=== PATIENT | male | born 1960 | race Caucasian/White ===

== ENCOUNTER 2016-11-22 14:35 | Emergency (ER) | payer BC, OTHER ==
[2016-11-22 15:35] VITALS: BP 147/82
--- NOTE | 2016-11-22 16:08 | UC ---
Respiratory Complaint HPI - HPI Summary HPI Summary: 56 yo male with a one week hx of ear ache (R>L), sore throat, nasal congestion and cough low grade fever chills no CP or SOB cough rarely productive malaise and fatigue - History of Current Complaint Chief Complaint: UCGeneralIllness Stated Complaint: COUGH Time Seen by Provider: 11/22/16 15:52 Hx Obtained From: Patient Onset/Duration: Gradual Onset, Lasting Days - 5-6 Timing: Constant Severity Initially: Mild Severity Currently: Moderate Pain Intensity: 3 Pain Scale Used: 0-10 Numeric Character: Cough: Nonproductive Aggravating Factors: Nothing Alleviating Factors: Nothing Associated Signs And Symptoms: Positive: Fever - pablito, Chills, Nasal Congestion - Allergies/Home Medications Allergies/Adverse Reactions: Allergies Allergy/AdvReac Type Severity Reaction Status Date / Time IV CONTRAST Allergy Mild HIVES, RASH Uncoded 11/22/16 15:29 PMH/Surg Hx/FS Hx/Imm Hx Previously Healthy: Yes Endocrine History Of: Reports: Thyroid Disease - THYRIOD CA - Surgical History Surgical History: Yes Surgery Procedure, Year, and Place: hernia. THYROIDECTOMY. TONSILECTOMY - Family History Known Family History: Positive: Diabetes, Other - [place] - Social History Alcohol Use: Occasionally Substance Use Type: None Smoking Status (MU): Heavy Every Day Tobacco Smoker Type: Cigarettes Amount Used/How Often: 1 PPD Length of Time of Smoking/Using Tobacco: 20 YEARS Have You Smoked in the Last Year: Yes Cessation Counseling: Patient Advised to Stop Review of Systems Constitutional: Fever - pablito, Chills, Fatigue Skin: Negative Eyes: Negative ENT: Sore Throat, Ear Ache Respiratory: Cough Cardiovascular: Negative Gastrointestinal: Negative Genitourinary: Negative Motor: Negative Neurovascular: Negative Musculoskeletal: Negative Neurological: Negative Psychological: Negative All Other Systems Reviewed And Are Negative: Yes Physical Exam Triage Information Reviewed: Yes Appearance: Well-Appearing, No Pain Distress, Well-Nourished Vital Signs: Initial Vital Signs Temp 99.6 F 11/22/16 15:30 Pulse 92 11/22/16 15:30 Resp 16 11/22/16 15:30 BP 147/82 11/22/16 15:30 Pulse Ox 97 11/22/16 15:30 Vital Signs Reviewed: Yes Eyes: Positive: Conjunctiva Clear ENT: Positive: Hearing grossly normal, Pharynx normal, Nasal congestion, TM bulging. Negative: Trismus, Muffled/hoarse voice Dental: Negative: Dental Fracture @, Abscess @ Neck: Positive: Supple, Nontender, No Lymphadenopathy Respiratory: Positive: Lungs clear, Normal breath sounds, No respiratory distress, No accessory muscle use, Rhonchi - with forced expiration Cardiovascular: Positive: RRR, No Murmur. Negative: Tachycardia, Bradycardia Musculoskeletal: Positive: ROM Intact, No Edema Neurological: Positive: Alert, Muscle Tone Normal Psychological Exam: Normal Skin Exam: Normal UC Diagnostic Evaluation - Laboratory O2 Sat by Pulse Oximetry: 97 - normal/not hypoxic Respiratory Course/Dx - Differential Dx/Diagnosis Provider Diagnoses: acute bronchitis. smoker Discharge - Discharge Plan Condition: Stable Disposition: HOME Prescriptions: Benzonatate CAP* [Tessalon CAP*] 100 - 200 mg PO TID PRN #28 cap PRN Reason: Cough Clarithromycin TAB* [Biaxin TAB*] 500 mg PO BID #20 tab Patient Education Materials: How to Stop Smoking (ED), Acute Bronchitis (ED) Forms: *Work Release Referrals: Jessy Begum MD [Primary Care Provider] - If Needed Additional Instructions: recheck in 3-4 days if not better
== END 2016-11-22 16:20 | disposition home or self-care (01) ==
LOC: UCCORT 14:35
DX: J20.9 Acute bronchitis, unspecified (principal); F17.210 Nicotine dependence, cigarettes, uncomplicated; Z85.850 Personal history of malignant neoplasm of thyroid; Z91.041 Radiographic dye allergy status
CPT/HCPCS: 99212; G0463

== ENCOUNTER 2017-07-24 10:21 | Emergency (ER) | payer BC, OTHER ==
[2017-07-24 10:39] VITALS: BP 132/86
--- NOTE | 2017-07-24 11:02 | UC ---
Upper Extremity HPI - HPI Summary HPI Summary: 57 y/o male with cut to L palm ~ 2 hours ago, + bleeding, sensation intact, movement intact, no priro injuries PMH- thyroidectomy, on synthroid, no other medical problems, no difficulty with wound healing, infections. 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 patients cut has stopped bleeding, states it was "very deep" holds fingers about 3mm apart to describe depth - History of Current Complaint Chief Complaint: UCLaceration Stated Complaint: LEFT HAND INJURY WC Time Seen by Provider: 07/24/17 10:38 Hx Obtained From: Patient Onset/Duration: Sudden Onset, Lasting Hours Severity Initially: Moderate Severity Currently: Moderate Alleviating Factor(s): Nothing Associated Signs And Symptoms: Positive: Other - bleeding Related History: Dominant Hand Right - Allergies/Home Medications Allergies/Adverse Reactions: Allergies Allergy/AdvReac Type Severity Reaction Status Date / Time IV CONTRAST Allergy Mild HIVES, RASH Uncoded 07/24/17 10:39 PMH/Surg Hx/FS Hx/Imm Hx Previously Healthy: Yes - thyroidectomy - Surgical History Surgical History: Yes Surgery Procedure, Year, and Place: hernia. THYROIDECTOMY. TONSILECTOMY - Family History Known Family History: Positive: Diabetes, Other - [place] - Social History Alcohol Use: Occasionally Substance Use Type: None Smoking Status (MU): Heavy Every Day Tobacco Smoker Type: Cigarettes Amount Used/How Often: 1 PPD Length of Time of Smoking/Using Tobacco: 20 YEARS Have You Smoked in the Last Year: Yes - Immunization History Most Recent Influenza Vaccination: no Most Recent Tetanus Shot: unknown Review of Systems Musculoskeletal: Edema, Myalgia, Other: - bleeding Is Patient Immunocompromised?: No All Other Systems Reviewed And Are Negative: Yes Physical Exam Triage Information Reviewed: Yes Appearance: Well-Appearing, No Pain Distress, Well-Nourished Vital Signs: Initial Vital Signs Temp 98.3 F 07/24/17 10:35 Pulse 86 07/24/17 10:35 Resp 16 07/24/17 10:35 BP 132/86 07/24/17 10:35 Pulse Ox 98 07/24/17 10:35 Vital Signs Reviewed: Yes Eyes: Positive: Conjunctiva Clear Musculoskeletal Exam: Normal Musculoskeletal: Positive: Strength Intact, ROM Intact, No Edema, Other: - full ROM and strength of L thumb and all fingers on L hand. lacteration over thenar emminsence, healed over at presenation, after soapy water soak minimal bleeding controlled with pressure, cleaned with betadine, covered with skin glue. Neurological: Positive: Alert, Muscle Tone Normal, Other: - senasation intact to light touch Upper Extremity Course/Dx - Course Course Of Treatment: wound cleaned, covered with skin glue, no complications, dressing applied. f/u with PCP if redness occurs, work note given - Differential Dx/Diagnosis Differential Diagnosis/HQI/PQRI: Hematoma, Laceration Provider Diagnoses: laceration left hand Discharge - Discharge Plan Condition: Good Disposition: HOME Patient Education Materials: Laceration (ED), Skin Adhesive Care (ED) Forms: *Work Release Referrals: Jessy Begum MD [Primary Care Provider] - Additional Instructions: - Keep area clean dry, do not get wet for first 24 hours - Tylenol as needed for pain - Return with increased redness, drainage, pain
== END 2017-07-24 11:25 | disposition home or self-care (01) ==
LOC: UCCORT 10:21
DX: S61.412A Laceration without foreign body of left hand, initial encounter (principal); F17.210 Nicotine dependence, cigarettes, uncomplicated; W27.8XXA Contact with other nonpowered hand tool, initial encounter; Z91.041 Radiographic dye allergy status
CPT/HCPCS: 12001; 99211; G0463